=== PATIENT | male | born 1990 | race American Indian/Alaskan Native ===

== ENCOUNTER 2017-08-06 18:44 | Emergency (ER) | payer OTHER ==
[2017-08-06 18:52] VITALS: BP 144/82
--- NOTE | 2017-08-06 21:55 | Emergency Department Report ---
ED Rash HPI - HPI Chief Complaint: Skin Rash Stated Complaint: PAIN (STATED) Time Seen by Provider: 08/06/17 21:50 Duration: Today Rash Symptoms: Yes Itching, Yes Blistering, No Facial Swelling, No Tongue/Oral Swelling, No Breathing Difficulties, No Choking Sensation, No Wheezing/Dyspnea, No Peeling, No Fever, No Lightheaded, No Malaise, No Myalgias Severity: mild Other History: 27-year-old male past medical history none presents with complaint of 3 months of itching in his inguinal region. Patient states he has tried [id number] lotion with minimal relief of his itching. Denies fever chills nausea vomiting or scrotal pain. ED Review of Systems ROS: Stated complaint: PAIN (STATED) Other details as noted in HPI Constitutional: denies: chills, fever Eyes: denies: eye pain, eye discharge, vision change ENT: denies: ear pain, throat pain Respiratory: denies: cough, shortness of breath, wheezing Cardiovascular: denies: chest pain, palpitations Endocrine: no symptoms reported Gastrointestinal: denies: abdominal pain, nausea, diarrhea Genitourinary: denies: urgency, dysuria Musculoskeletal: denies: back pain, joint swelling, arthralgia Skin: as per HPI, rash. denies: lesions Neurological: denies: headache, weakness, paresthesias Psychiatric: denies: anxiety, depression Hematological/Lymphatic: denies: easy bleeding, easy bruising ED Past Medical Hx - Past Medical History Previous Medical History?: No - Surgical History Past Surgical History?: No - Social History Smoking Status: Never Smoker Substance Use Type: None - Medications Home Medications: Home Medications Medication Instructions Recorded Confirmed Last Taken Type Butenafine HCl [Lotrimin Ultra] 1 applicatio TP QDAY #1 cream..g. 08/06/17 Unknown Rx Fluconazole [Diflucan] 150 mg PO QWEEK #3 tablet 08/06/17 Unknown Rx Menthol/Zinc Oxide [[address] 1 applicatio TP BID #1 powder 08/06/17 Unknown Rx Medicated Body Powd] Rash Exam - Exam General: Vital signs noted. No distress. Alert and acting appropriately. HEENT: No Periorbital Edema, No Conjuctival Injection, No Chemosis, No Perioral Edema, No Tongue Edema, No Uvular Edema, No Compromised Airway, No Drooling Lungs: Yes Good Air Exchange (Normal Breath Sounds), No Wheezes, No Ronchi, No Stridor, No Cough, No Labored Respirations, No Retractions, No Use of Accessory Muscles, No Other Abnormal Lung Sounds Heart: Yes Regular, No Murmur Skin: Yes Maculopapular Rash (inguinal groin rash appearance of tinea cruris), No Urticarial Rash, No Morbilliform rash, No Bulla(e), No Excoriations, No Weeping, No Tenderness, No Erythema, No Edema, No Encrustations, No Other Other: Positive: Abdomen Normal, Neurologic Normal, Musculoskeletal Normal ED Course Vital Signs 08/06/17 18:49 Temperature 98.2 F Pulse Rate 102 H Respiratory 18 Rate Blood Pressure 144/82 O2 Sat by Pulse 100 Oximetry ED Medical Decision Making - Medical Decision Making A/P: Tinea cruris 1-fluconazole, Lotrimin cream, [place] powder 2-follow up with primary care Critical care attestation.: If time is entered above; I have spent that time in minutes in the direct care of this critically ill patient, excluding procedure time. ED Disposition Clinical Impression: Tinea cruris Disposition: DC-01 TO HOME OR SELFCARE Is pt being admited?: No Does the pt Need Aspirin: No Condition: Stable Instructions: Daniel Dave (ED) Prescriptions: Butenafine HCl [Lotrimin Ultra] 1 applicatio TP QDAY #1 cream..g. Fluconazole [Diflucan] 150 mg PO QWEEK #3 tablet Menthol/Zinc Oxide [[address] Medicated Body Powd] 1 applicatio TP BID #1 powder Referrals: [facility] [Outside] - 3-5 Days [facility] [Outside] - 3-5 Days Time of Disposition: 21:53
== END 2017-08-06 21:50 | disposition home or self-care (01) ==
LOC: ED 18:44
DX: B35.6 Tinea cruris (principal)
CPT/HCPCS: 99282

== ENCOUNTER 2020-08-02 15:58 | Emergency (ER) | payer SELFPAY ==
[2020-08-02 17:28] VITALS: BP 146/90
--- NOTE | 2020-08-02 18:43 | Emergency Department Report ---
Chief Complaint: Dental/Oral Stated Complaint: SEE DOCTOR Time Seen by Provider: 08/02/20 18:38 - HPI History of Present Illness: 30-year-old male presents emerged department with 10-day history of discomfort to his lingula region which is worsened with certain foods and he notices swelling to the left side which is resolved with massaging of that region of the Rose's ducts. Ports no fever, chills, sweats no odynophagia no no dysphagia, no hemoptysis no hematemesis no hematochezia. - ROS Review of Systems: As per HPI all other symptoms systems are negative - Exam Vital Signs: Vital Signs 08/02/20 17:27 Temperature 98.1 F Pulse Rate 114 H Respiratory 19 Rate Blood Pressure 146/90 O2 Sat by Pulse 100 Oximetry Physical Exam: Vital signs stable General: Patient is well nourished, well developed, awake and alert, resting comfortably in no acute distress Head: Normocephalic and atraumatic Eyes: Normal inspection, extraocular muscles intact, no conjunctival pallor Ear, nose, throat: Normal external exam Neck: Normal range of motion Respiratory: Patient is in no respiratory distress, lungs CTAB Cardiovascular: Patient is not tachycardic, RRR without murmur appreciated GI: Abd SNT with no guarding or rebound; +BS normoactive x 4, no tympanny to percussion Back: Normal inspection of the back with good strength and range of motion throughout all ext Extremities: pulses intact with good cap refills, no LE pitting edema or calf tenderness Neuro: The patient is alert and oriented to person, place, and time, appropriately conversive, with 5/5 bilat UE/LE strength, no gross motor or sensory defects noted. Coordination appears to be adequate. Skin: Warm, dry, and intact MSE screening note: Focused history and physical exam performed. Due to findings the following was ordered: ED Medical Decision Making - Medical Decision Making 30-year-old male with what appears to be describing salivary stones advised no need to follow-up with ENT for definitive treatment. We will provide him with educational handouts revolving these have returned with no evidence of any inflammatory or infectious process is present. Airways patent tongue and uvula are midline there is no swelling of the submandible or submental region to suggest any parotid infectious activity or Tom's ED Disposition for MSE Clinical Impression: Sialolithiasis Disposition: MED SCREENING EXAM-LEFT Condition: Stable Instructions: Salivary Stone Referrals: MARLO MARCUM MD [Staff Physician] - 3-5 Days [facility] [Provider Group] - 3-5 Days
== END 2020-08-02 19:30 | disposition left against medical advice (07) ==
LOC: ED 15:58
DX: Z00.8 Encounter for other general examination (principal); Z53.21 Procedure and treatment not carried out due to patient leaving prior to being seen by health care provider